=== PATIENT | male | born 1995 | race Two or more races ===

== ENCOUNTER 2022-07-14 10:06 | Emergency (ER) | payer BC ==
[~2022-07-14] VITALS: Ht 185.4 cm; Wt 84.6 kg
[2022-07-14 10:39] VITALS: BP 130/80
[2022-07-14] MEDS ORDERED: ACETAMINOPHEN 500 MG TAB PO ONE (11:00)
[2022-07-14] MEDS ORDERED: CEPH-510 PO (11:43)
[2022-07-14] MEDS ORDERED: IBUP800T27 PO (11:43)
== END 2022-07-14 11:51 | disposition home or self-care (01) ==
LOC: ER 10:06
DX: S02.2XXA Fracture of nasal bones, initial encounter for closed fracture (principal); S00.83XA Contusion of other part of head, initial encounter; W01.0XXA Fall on same level from slipping, tripping and stumbling without subsequent striking against object, initial encounter; Y93.89 Activity, other specified; Y92.481 Parking lot as the place of occurrence of the external cause; Y99.8 Other external cause status
CPT/HCPCS: 70160; 70450